=== PATIENT | female | born 1945 | race Caucasian/White ===

== ENCOUNTER → 2022-12-28 | Outpatient (CLI) | payer MEDICARE, SELFPAY ==
--- NOTE | 2022-12-28 12:42 | CDU_ITS ---
Reason For Study: TIA Rt. Velocities/BP Lt. Velocities/BP Prox CCA 87.6/11.4 cm/sec. Prox CCA 67.4/11.3 cm/sec. Mid CCA 71.6/10.2 cm/sec. Mid CCA 70.7/13.5 cm/sec. Dist CCA 71.6/9 cm/sec. Dist CCA 87.2/11.3 cm/sec. Prox ICA 139.4/24.3 cm/sec. Prox ICA 85/21.2 cm/sec. Mid ICA 121.1/22.5 cm/sec. Mid ICA 108/24.5 cm/sec. Dist ICA 94.5/18.7 cm/sec. Dist ICA 89.4/19 cm/sec. Rt. ICA/CCA = 1.95. Lt. ICA/CCA = 1.53. Prox ECA 128.4/6 cm/sec. Prox ECA 97.1/8 cm/sec. Rt. Vert. 43/7.2 cm/sec. Lt. Vert. 53.1/10.2 cm/sec. Right Extracranial There is heterogeneous, irregular atherosclerotic plaque noted in the right common carotid artery. There is heterogeneous, irregular atherosclerotic plaque noted in the right internal carotid artery. There is heterogeneous, irregular atherosclerotic plaque noted in the right external carotid artery. Antegrade flow is noted in the right vertebral artery. Left Extracranial There is heterogeneous, irregular atherosclerotic plaque noted in the left common carotid artery. There is heterogeneous, irregular atherosclerotic plaque noted in the left internal carotid artery. There is heterogeneous, irregular atherosclerotic plaque noted in the left external carotid artery. Antegrade flow is noted in the left vertebral artery. Procedure Carotid Duplex 47659. This is a Carotid Duplex examination using B-mode, color flow and specral Doppler. Exam performed in department. VL/Carotid Duplex Ultrasound Interpretation Summary Moderate (50-69%) stenosis right extracranial internal carotid. Mild (<50%) stenosis left extracranial internal carotid. Patent and antegrade vertebrals bilaterally. Ordering Physician: Andrzej Angulo Referring Physician: Jo-Ann Ulloa Performed By: Marybeth Weiss RVT
== END | disposition home or self-care (01) ==
PROVIDERS: PCP Family Medicine; Visit Provider Ophthalmology
DX: G45.8 Other transient cerebral ischemic attacks and related syndromes (principal)
CPT/HCPCS: 93306; 93880; Q9957; A4216; C8929